=== PATIENT | male | born 1995 | race African-American/Black ===

== ENCOUNTER 2023-01-27 15:41 | Emergency (ER) | payer OTHER, SELFPAY ==
--- NOTE | ~2023-01-27 | XR_ITS ---
EXAMINATION: XR HAND, RIGHT CLINICAL INFORMATION: Right hand pain. COMPARISON: None available. TECHNIQUE: PA, lateral, and oblique views of the right hand. FINDINGS: Alignment is anatomic. Joint spaces are maintained. No displaced fracture or dislocation. No erosions or soft tissue calcifications. XR/XR hand RT 2V IMPRESSION: No acute abnormality.
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
[2023-01-27 15:44] VITALS: BP 153/104; PULSE 85; RESP 18; TEMP 36.2; O2SAT 98
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
[2023-01-27] MEDS: Diphth,Pertus(ACell),Tet Adult 0.5 ML SYRINGE IM (16:52)
== END 2023-01-27 17:37 | disposition home or self-care (01) ==
PROVIDERS: Emergency Provider Emergency Medicine Emergency Medical Services
DX: S00.211A Abrasion of right eyelid and periocular area, initial encounter (principal); H11.31 Conjunctival hemorrhage, right eye; M79.641 Pain in right hand; Y04.2XXA Assault by strike against or bumped into by another person, initial encounter; Y92.9 Unspecified place or not applicable; Y99.9 Unspecified external cause status; Z23 Encounter for immunization
CPT/HCPCS: 73120; 90471; 90715; 99282; 99284